=== PATIENT | male | born 1965 | race Caucasian/White ===

== ENCOUNTER → 2018-02-16 | Outpatient (CLI) | payer OTHER | END | disposition home or self-care (01) | LOC: PNCL 14:04 | DX: M79.604 Pain in right leg (principal); M54.5 Low back pain; M19.90 Unspecified osteoarthritis, unspecified site; K58.9 Irritable bowel syndrome, unspecified | CPT/HCPCS: 99214 ==

== ENCOUNTER → 2018-03-02 | Outpatient (CLI) | payer OTHER ==
[~2018-03-02] MED LIST: IOHEXOL 180 MG/ML 10 ML VIAL.; LIDOCAINE 2% PF 2ML VIAL.; methylPREDNISolone ACETATE 40 MG/ML VIAL.; methylPREDNISolone ACETATE 80 MG/ML VIAL.
== END | disposition home or self-care (01) ==
LOC: PNCL 14:06
DX: M51.16 Intervertebral disc disorders with radiculopathy, lumbar region (principal); M48.061 Spinal stenosis, lumbar region without neurogenic claudication; Z79.899 Other long term (current) drug therapy; K58.9 Irritable bowel syndrome, unspecified; M19.90 Unspecified osteoarthritis, unspecified site
CPT/HCPCS: 62323; J1030; J1040; J2001; Q9965

== ENCOUNTER → 2018-05-25 | Outpatient (CLI) | payer OTHER ==
[~2018-05-25] MED LIST changes: +DOXY25TA42 PO; +HYDR-2758 PO; +IBUP-1027 PO; -IOHEXOL 180 MG/ML 10 ML VIAL.; -LIDOCAINE 2% PF 2ML VIAL.; +MULT-245 PO; -methylPREDNISolone ACETATE 40 MG/ML VIAL.; -methylPREDNISolone ACETATE 80 MG/ML VIAL.
--- NOTE | 2018-05-26 05:31 | PAIN ---
DATE OF SERVICE: 05/25/2018 DIAGNOSES: Lumbar radiculopathy with lumbar degenerative disk disease, lumbar spinal stenosis, lumbar herniated disk. HISTORY OF PRESENT ILLNESS: The patient is a 52-year-old male who returns for followup status post lumbar epidural steroid injection x 1 on 03/02/2018. The patient did very well with 90% improvement for about 2 months following the injection. The patient reports the pain is returning now in the low back and into the right lower extremity as it was previously, not to the same extreme, but it is still becoming more noticeable day by day in the right posterior hip, posterior lateral thigh, gluteus, lateral anterior thigh, anterior medial thigh, medial lower leg to the calf, radiating, burning, cramping, shooting pain as well. The patient reports it is an 8 on scale of 10 at all times, average, worst and least. It is an 8 on a scale of 10 today. The patient reports no new motor or sensory deficits. No new bowel or bladder incontinence. He was initially functioning much easier, work with doing work activities as well as household activities, sleeping better at night, now is awakening him from sleep about once at night when he lies on the right side. The patient reports no other changes, but was doing quite well, with the pain is now returning on the right side in a radicular pattern. PHYSICAL EXAMINATION: VITAL SIGNS: The patient's blood pressure 121/78, pulse 81, respirations 16, temperature 98.3 degrees Fahrenheit, height is 5 feet 7 inches, weight is 152 pounds. GENERAL: The patient is awake, alert, oriented, appropriate, very pleasant demeanor. HEENT: Shows normocephalic, atraumatic. Extraocular movements are intact and symmetrical. The patient wears eye glasses. Oral cavity: Mucous membranes moist and pink. Dentition is intact. NECK: Shows anterior throat supple without palpable lymphadenopathy noted. Swallow reflex is symmetrical. CHEST: Shows normal on inspection. Breath sounds are clear to auscultation bilaterally. HEART: Shows S1, S2 clear. No murmurs auscultated. ABDOMEN: Soft, nontender, nondistended. No palpable organomegaly is noted. No rebound or guarding demonstrated. BACK: Shows spine grossly in the midline. Normal appearing thoracic kyphosis and lumbar lordotic curvature. Lumbar paraspinous muscle shows symmetrical on inspection. On palpation shows some moderate tenderness bilaterally, but only diffusely without atrophy, hypertrophy or asymmetry. The patient has good rotational motion of lumbar spine, both laterally as well as extension and flexion without significant difficulty. EXTREMITIES: Lower extremities show deep tendon reflexes at 2+ in the patellar, 1+ tendo calcaneus tendons. Motor exam is strong with approximately 4 on a scale of 5 with right dorsiflexion and extension, 5/5 on the left. Peripheral pulses are 1+ posterior tibia. No peripheral edema is noted. The patient does have mild straight leg raise on the right side about 40 degrees, which has decreased with knee flexion. Left side is negative. Options were discussed with the patient. The patient's old chart was reviewed as is his current medication regimen updated. Current review of systems is updated today as well. We will preauthorize the patient for a second lumbar epidural steroid injection as he has done very well with the first injection with pain returning in the low back, right lower extremity in a radicular fashion L4-L5 dermatomal distribution. The patient will continue with home exercise, stretching and strengthening as he is doing daily and walking daily, also maintaining with anti-inflammatories as he has been taking Advil 3 times a day and we will maintain this as well. We also try Medrol Dosepak. The patient was given instruction as well as side effects to be aware of with the medication. The patient will follow up in approximately 2 weeks. We will plan on second lumbar epidural injection at that time. ARMIN FINN MD DR: ALEIDA/hilda JOB#: [id number] / [id number]
== END | disposition home or self-care (01) ==
LOC: PNCL 11:04
PROVIDERS: ATTEND Anesthesiology
DX: M51.16 Intervertebral disc disorders with radiculopathy, lumbar region (principal); M48.061 Spinal stenosis, lumbar region without neurogenic claudication
CPT/HCPCS: 99212

== ENCOUNTER → 2018-06-08 | Outpatient (CLI) | payer OTHER ==
[~2018-06-08] MED LIST changes: +IOHEXOL 180 MG/ML 10 ML VIAL. ONE; +methylPREDNISolone ACETATE 40 MG/ML VIAL. ONE; +methylPREDNISolone ACETATE 80 MG/ML VIAL. ONE
--- NOTE | 2018-06-08 21:35 | PAIN ---
DATE OF SERVICE: 06/08/2018 PROGRESS NOTE FOR PAIN CLINIC DIAGNOSES: Lumbar radiculopathy with lumbar degenerative disk disease, lumbar spinal stenosis and lumbar herniated disk. HISTORY OF PRESENT ILLNESS: The patient is a 52-year-old male who returns for followup status post lumbar epidural steroid injection x 1. The patient reports about 90% improvement for 2 months and had waited for preauthorization for today's injection and would like to proceed. The patient reports still pain in the low back and into the right lower extremity, mostly in the posterior gluteus, posterolateral thigh, lateral anterior thigh, medial thigh, medial knee on the right side into the medial calf. The patient reports it is a 9 on a scale of 10 at its worst, 9 on average, 3 at its least and is a 9 today. The patient reports it is aching, sharp, burning, cramping, radiating, on and off in intensity becoming more intense with time and more constant with time. The patient reports he was initially increasing his work activities as well as household activities with greater ease and comfort, but the pain returned now and limiting his activities. The patient reports he does sleep well at night and it does not bother him when he is off of his feet, generally with lying down or sitting. PHYSICAL EXAMINATION: VITAL SIGNS: The patient's blood pressure 120/70, pulse 71, respirations 16 and temperature 97.9 degrees Fahrenheit. Height is 5 feet 7 inches and weight is 156 pounds. GENERAL: The patient is awake, alert, oriented, appropriate and very pleasant demeanor. HEENT: Head shows normocephalic and atraumatic. Extraocular movements are intact and symmetrical. Oral cavity: Mucous membranes moist and pink. Dentition is intact. NECK: Shows anterior throat supple without palpable lymphadenopathy noted. Swallow reflex symmetrical. CHEST: Shows normal on inspection. Breath sounds are clear to auscultation bilaterally. HEART: Shows S1 and S2 clear. No murmurs auscultated. ABDOMEN: Soft, nontender and nondistended. No palpable organomegaly is noted. No rebound or guarding demonstrated. BACK: Shows spine grossly in the midline. Normal-appearing thoracic kyphosis and lumbar lordotic curvature. Lumbar paraspinous muscle shows symmetrical on inspection, on palpation shows some moderate tenderness but only diffusely with palpation without radiation. EXTREMITIES: The patient's lower extremities show deep tendon reflexes at 2+ in the patellar, 1+ tendo-calcaneus tendons. Motor exam is strong with 4/5 dorsiflexion and extension on the right and 5/5 on the left. Peripheral pulses are 1+ posterior tibia. No peripheral edema is noted bilaterally. Options were discussed with the patient. The patient's old chart was reviewed as well as his current medication regimen updated. Current review of systems updated today as well. We will proceed with a second in the series of lumbar epidural steroid injection today with fluoroscopic guidance. Risks were again discussed including, but not limited to bleeding, infection, possibility of epidural hematoma and subsequent neurological compromise, dural puncture, headaches, spinal cord and/or nerve damage, side effects of steroid medication and poor results regarding pain control. The patient understands and wished to proceed. The patient will return to the clinic in approximately 2 weeks for followup, was counseled as to return appointment, activity level and side effects to be aware of. DIAGNOSES: Lumbar radiculopathy with lumbar degenerative disk disease, lumbar spinal stenosis and lumbar herniated disk. PROCEDURES: Lumbar epidural steroid injection, translaminar approach at L4-L5 level using C-arm fluoroscopic guidance under sterile prep and drape using local anesthetic. MEDICATION INJECTED: A total of 120 mg Depo-Medrol plus 10 mL of preservative-free normal saline and 2 mL of Isovue for contrast. CONDITION AT DISCHARGE: Stable. The patient tolerated the procedure well, had no complications. ARMIN FINN MD DR: ALEIDA/hilda JOB#: [id number] / [id number]
== END | disposition home or self-care (01) ==
LOC: PNCL 15:04
PROVIDERS: ATTEND Anesthesiology
DX: M51.16 Intervertebral disc disorders with radiculopathy, lumbar region (principal); M48.061 Spinal stenosis, lumbar region without neurogenic claudication
CPT/HCPCS: 62323; J1030; J1040; Q9965

== ENCOUNTER → 2018-08-07 | Outpatient (CLI) | payer OTHER ==
[~2018-08-07] MED LIST changes: -HYDR-2758 PO; +HYDR-2761 PO; -IOHEXOL 180 MG/ML 10 ML VIAL. ONE; -methylPREDNISolone ACETATE 40 MG/ML VIAL. ONE; -methylPREDNISolone ACETATE 80 MG/ML VIAL. ONE
--- NOTE | 2018-08-07 21:25 | PAIN ---
DATE OF SERVICE: 08/07/2018 DIAGNOSES: 1. Lumbar radiculopathy with lumbar degenerative disk disease. 2. Lumbar spinal stenosis. 3. Lumbar herniated disk. HISTORY OF PRESENT ILLNESS: The patient is a 52-year-old male who returns for followup status post lumbar epidural steroid injection on 06/08/2018. The patient did very well with about 75% improvement in the low back and right lower extremity pain for a while, the lower extremity pain with nearly 100% improved. The pain has been returning now in the low back and the right lower extremity. The patient reports this has only come back over the last few days and had about a good 6 weeks of decreased pain in the low back and right lower extremity. Again, getting worse with activity, he has been taking down a lot of [place] decorations, has been on his feet a lot. Also, his right knee is causing some significant pain and he has had some meniscal problems in that as well. His main complaint is low back and right lower extremity pain; described as burning, cramping, throbbing, stabbing, tingling, radiating, sharp and dull across the low back. The patient reports it is 10 on a scale of 10 at its worst, 8 on an average, 6 at its least and is 6 today. The patient reports it has been keeping him from sleeping and he lays on his right side, it awakens him about every 4 hours. The patient reports initially he was doing much better with increased distance walking, working on activities, household activities with much greater ease and comfort, but now is returning as noted. The patient reports that hydrocodone has been helpful, but he has taken the last of those and has been out for several weeks now. PHYSICAL EXAMINATION: VITAL SIGNS: The patient's blood pressure is 110/73, pulse 78, respirations 18, temperature 98.2 degrees Fahrenheit, height is 5 feet 7 inches, weighs 154 pounds. GENERAL: The patient is awake, alert, oriented, appropriate, very pleasant demeanor. HEENT: Head is normocephalic, atraumatic. Extraocular movements intact and symmetrical. Oral cavity: Mucous membranes moist and pink. Dentition is intact. NECK: Shows anterior throat supple without palpable lymphadenopathy noted. Swallow reflex symmetrical. CHEST: Shows normal with inspection. Breath sounds clear to auscultation bilaterally. HEART: Shows S1, S2 clear. No murmurs auscultated. ABDOMEN: Soft, nontender, nondistended. No palpable organomegaly is noted. No rebound or guarding demonstrated. BACK: Shows spine grossly in the midline. Normal-appearing thoracic kyphosis and lumbar lordotic curvature. Lumbar paraspinous muscle shows symmetrical on inspection. On palpation, it shows some moderate tenderness but only diffusely bilaterally in the low lumbar distribution, without asymmetry, without atrophy or hypertrophy. The patient's back shows good rotation of motion both laterally as well as extension and flexion without significant difficulty. EXTREMITIES: Lower extremities show deep tendon reflexes 2+ in the patella and 1+ in tendo calcaneus tendons. Motor exam is approximately 4 on a scale of 5 with right dorsiflexion, extension, quadriceps and hamstring flexion and 5/5 on the left. Peripheral pulses are 1+ posterior tibia. No peripheral edema is noted bilaterally. The patient does have mild straight leg raise on the right at about 45 degrees, which is decreased with knee flexion. Gaenslen's and Eduard's maneuvers are negative bilaterally. Left side is negative. Options were discussed with the patient. The patient's old chart was reviewed as was current medication regimen updated. Current review of systems updated today as well. We will preauthorize the patient for a second lumbar epidural steroid injection with radicular pain again returning in the right L4-L5 dermatomal distribution for L4-L5 epidural steroid injection at that level. The patient will continue with stretching and strengthening exercises as he has been doing, also heat application in the low back and stretching and walking as best as his knee will allow him as tolerated. The patient will return to the clinic in approximately 2 weeks. We will plan on lumbar epidural steroid injection at that time. ARMIN FINN MD DR: ALEIDA/hilda JOB#: [id number] / [id number]
== END | disposition home or self-care (01) ==
LOC: PNCL 15:02
PROVIDERS: ATTEND Anesthesiology
DX: M51.16 Intervertebral disc disorders with radiculopathy, lumbar region (principal); M48.061 Spinal stenosis, lumbar region without neurogenic claudication; M51.26 Other intervertebral disc displacement, lumbar region
CPT/HCPCS: G0463

== ENCOUNTER → 2018-08-17 | Outpatient (CLI) | payer OTHER ==
[~2018-08-17] MED LIST changes: +IOHEXOL 180 MG/ML 10 ML VIAL. ONE; +methylPREDNISolone ACETATE 40 MG/ML VIAL. ONE; +methylPREDNISolone ACETATE 80 MG/ML VIAL. ONE
--- NOTE | 2018-08-17 19:31 | PAIN ---
DATE OF SERVICE: 08/17/2018 DIAGNOSES: 1. Lumbar radiculopathy with lumbar degenerative disk disease, lumbar spinal stenosis ;and lumbar herniated disk. 2. Right knee joint pain with primary osteoarthritis right knee joint. HISTORY OF PRESENT ILLNESS: The patient is a 52-year-old male who returns for followup status preauthorization for lumbar epidural steroid injection #3. The patient did very well after the last injection, about 50% improvement overall, now with pain returning in the right lower extremity, low back, posterior gluteus, posterior lateral thigh, lateral anterior thigh, medial thigh, medial lower leg, also significant pain in the right knee with walking, standing, changing positions, climbing stairs or climbing up on a step even in the right knee itself. The patient reports the knee is much better without weightbearing and with lying down, but his back still causes some pain at night, occasionally awakens him from sleep, but not most nights. The patient reports no new motor or sensory deficits, no new bowel or bladder incontinence. The patient reports pain in the back is 9 on a scale of 10 at its worst, 8 on an average, 7 at its least and is 7 today. The patient reports it is aching, cramping, radiating dull, sharp pain, alternating with aching and radiating into the right knee as well. PHYSICAL EXAMINATION: VITAL SIGNS: The patient's blood pressure 112/60, pulse 67, respirations 18, temperature 98.6 degrees Fahrenheit. Height is 5 feet 7 inches, weight 158 pounds. GENERAL: The patient is awake, alert, oriented, appropriate, very pleasant demeanor. HEENT: Head shows normocephalic, atraumatic. Extraocular muscles are intact and symmetrical. Oral cavity, mucous membranes are moist and pink. Dentition is intact. NECK: Shows anterior throat supple without palpable lymphadenopathy noted. Swallow reflex symmetrical. CHEST: Shows normal on inspection. Breath sounds clear to auscultation bilaterally. HEART: Shows S1, S2 clear. No murmurs auscultated. ABDOMEN: Soft, nontender, nondistended. No palpable organomegaly is noted. No rebound or guarding demonstrated. BACK: Shows spine grossly in the midline. Normal-appearing thoracic kyphosis and lumbar lordotic curvature. Lumbar paraspinous muscle shows symmetrical on inspection; with palpation, shows some moderate tenderness, but only diffusely in the low lumbar distribution without radiation. EXTREMITIES: The patient's lower extremities show deep tendon reflexes at 2+ in the patellar, 1+ in the tendo calcaneus tendons are equal. Motor exam is strong with 4/5 on the right with dorsiflexion and extension, 5/5 on the left. Peripheral pulses are 1+ posterior tibial. No peripheral edema is noted bilaterally. The patient's right knee shows some fairly significant tenderness with palpation in the medial component and the medial collateral ligament, but good range of motion with both active and passive range without ratcheting or crepitus. Options were discussed with the patient. The patient's old chart was reviewed as was his current medication regimen updated. Current review of systems updated today as well. We will proceed with a third lumbar epidural steroid injection today with fluoroscopic guidance. Risks were again discussed including, but not limited to bleeding, infection, possibility of epidural hematoma, subsequent neurologic compromise, dural puncture, headaches, spinal cord and/or nerve damage, side effects of steroid medication and poor results regarding pain control. The patient understands and wished to proceed. The patient will return to clinic in approximately 2 weeks for followup, was counseled as to return appointment, activity level and side effects to be aware of. We also will preauthorize the patient for a right intraarticular knee joint injection as he had significant pain in the right knee with MRI of the right knee showing subchondral cyst formation, full thickness chondral fissuring of the medial most aspect of the patella and myocardial loss in the trochlear groove and full thickness chondral irregularity involving the articular surface of the distal lateral femoral condyle. DIAGNOSIS: Lumbar radiculopathy with lumbar degenerative disk disease, lumbar spinal stenosis and lumbar herniated disk. PROCEDURE: Lumbar epidural steroid injection, translaminar approach at the L4-L5 level using C-arm fluoroscopic guidance under sterile prep and drape using local anesthetic. MEDICATION INJECTED: A total of 120 mg Depo-Medrol plus 10 mL of preservative-free normal saline and 2 mL of Isovue for contrast. CONDITION AT DISCHARGE: Stable. The patient tolerated the procedure well, had no complications. ARMIN FINN MD DR: ALEIDA/hilda JOB#: [id number] / [id number]
== END | disposition home or self-care (01) ==
LOC: PNCL 14:03
PROVIDERS: ATTEND Anesthesiology
DX: M51.16 Intervertebral disc disorders with radiculopathy, lumbar region (principal); M48.061 Spinal stenosis, lumbar region without neurogenic claudication; M17.11 Unilateral primary osteoarthritis, right knee
CPT/HCPCS: 62323; J1030; J1040; Q9965

== ENCOUNTER → 2018-10-10 | Outpatient (CLI) | payer OTHER ==
[~2018-10-10] MED LIST changes: +BUPIVACAINE MPF 0.25% 10 ML VIAL. ONE; -methylPREDNISolone ACETATE 40 MG/ML VIAL. ONE
--- NOTE | 2018-10-11 01:15 | PAIN ---
DATE OF SERVICE: 10/10/2018 PROGRESS NOTE FOR PAIN CLINIC DIAGNOSES: 1. Lumbar radiculopathy with lumbar degenerative disk disease with lumbar spinal stenosis and lumbar herniated disk. 2. Right knee joint pain with osteoarthritis, primary, right knee. 3. Right elbow bursitis. HISTORY OF PRESENT ILLNESS: The patient is a 52-year-old male who returns for followup status post lumbar epidural steroid injection with very good results with near 100% improvement with his back. He is having pain in his right knee as well as his right elbow for about the past 2 weeks for which he has been taking Motrin and Advil [id number]. Also, he has tried Naprosyn and putting Voltaren gel on his right elbow without significant improvement. It is much worse with working and using his upper extremities with any repetitive motions or any activity, twisting, lifting motion. 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 The patient reports not much relief with the nonsteroidals as well as stretching exercises. He is putting ice applications on his elbow as well, which feels good for a while, but is having significant pain with use of it, also having significant pain with standing on his right knee, especially with stepping on stairs or steps at work, especially with any pressure on the right knee exclusively. The patient reports no new motor or sensory deficits, no new bowel or bladder incontinence or other complaints. The patient rates his pain as a 10 on a scale of 10 on average, worst and at its least and is a 10 today in the right elbow and is 7 on the right knee. The patient reports it is sharp, burning, constant, becoming severe, more unbearable, again with activity with the right arm and right knee. PHYSICAL EXAMINATION: VITAL SIGNS: The patient's blood pressure is 100/69, pulse 70, respirations 18, temperature 97.9 degrees Fahrenheit. Height is 5 feet 7 inches, weight is 159 pounds. GENERAL: The patient is awake, alert, oriented, appropriate, very pleasant demeanor. HEENT: Head shows normocephalic, atraumatic. Extraocular movements are intact and symmetrical. Oral cavity: Mucous membranes moist and pink. Dentition is intact. NECK: Shows anterior throat supple without palpable lymphadenopathy noted. Swallow reflex symmetrical. CHEST: Shows normal with inspection. Breath sounds clear to auscultation bilaterally. HEART: Shows S1, S2 clear. No murmurs auscultated. ABDOMEN: Soft, nontender, nondistended. No palpable organomegaly is noted. No rebound or guarding demonstrated. BACK: Shows spine grossly in the midline. Normal appearing thoracic kyphosis and lumbar lordotic curvature. Lumbar paraspinous muscle shows symmetrical with very minimal tenderness on palpation with low lumbar distribution of the paraspinous musculature. The patient has good rotational motion of lumbar spine both laterally as well as extension and flexion without significant difficulty or pain reported. EXTREMITIES: The patient's extremities show upper extremity deep tendon reflexes 2+ in the biceps, triceps tendons. Pararescue Manager strength is 5/5 mobile practice lead strength bilaterally. The patient's right elbow shows significant tenderness over the lateral condyle with even moderate pressure with significant pain reported, some mild pain in the medial condyle and over the olecranon process medially as well as anteriorly, mostly on the lateral epicondyle on the right side with significant pain with palpation. This is worse with rotation, supination and pronation of the hand, even without weightbearing. Left side is nontender. The patient's lower extremities show deep tendon reflexes at 2+ in the patellar, 1+ tendo calcaneus tendons. Motor exam is strong with 4/5 on the right, 5/5 on the left. The patient's right knee shows significant tenderness with weightbearing putting all his weight on the knee, but shows good range of motion without crepitus or ratcheting. Options were discussed with the patient. The patient's old chart was reviewed as his current medication regimen updated. Current review of systems updated today as well. We will proceed with right intraarticular knee joint injection as he has not been preauthorized for his right elbow bursa injection and would like to get the knee taken care of today. Options were discussed, risks including, but not limited to, bleeding, infection, possibility of intravascular injection sequelae, spread of local anesthetic and numbness, side effects of steroid medication and poor results regarding pain control. The patient understands and wished to proceed. The patient to return to clinic in approximately 1 week. We will plan on right elbow epicondylar intraarticular injection at that time once approval has been obtained with his insurance provider. The patient will continue with the nonsteroidals as well as doing some stretching exercises with the right arm and mobility exercises, also trying to get wearing a band around the upper forearm as well and maintain the Voltaren gel applications and ice applications. DIAGNOSIS: Primary osteoarthritis, right knee joint. PROCEDURE: Right intraarticular knee joint injection using C-arm fluoroscopic guidance under sterile prep and drape using local anesthetic. MEDICATION INJECTED: A total of 80 mg of Depo-Medrol plus 3 mL of 0.25% bupivacaine and 1.5 mL Isovue for contrast. CONDITION AT DISCHARGE: Stable. The patient tolerated the procedure well, had no complications. ARMIN FINN MD DR: ALEIDA/hilda JOB#: [id number] / [id number]
== END | disposition home or self-care (01) ==
LOC: PNCL 07:57
PROVIDERS: ATTEND Anesthesiology
DX: M17.11 Unilateral primary osteoarthritis, right knee (principal); M70.31 Other bursitis of elbow, right elbow; M51.16 Intervertebral disc disorders with radiculopathy, lumbar region; M48.061 Spinal stenosis, lumbar region without neurogenic claudication
CPT/HCPCS: 20610; 77002; J1040; J3490; Q9965

== ENCOUNTER → 2018-10-24 | Outpatient (CLI) | payer OTHER ==
[~2018-10-24] MED LIST changes: -IOHEXOL 180 MG/ML 10 ML VIAL. ONE; +methylPREDNISolone ACETATE 40 MG/ML VIAL. ONE; -methylPREDNISolone ACETATE 80 MG/ML VIAL. ONE
--- NOTE | 2018-10-25 04:10 | PN ---
DATE: 10/24/2018 DIAGNOSES: 1. Right elbow olecranon bursitis. 2. Lumbar radiculopathy with lumbar degenerative disk disease with lumbar spinal stenosis and lumbar herniated disk. 3. Right knee joint pain with primary osteoarthritis, right knee joint. HISTORY OF PRESENT ILLNESS: The patient is a 52-year-old male, who returns for followup status post right intraarticular knee joint injection. The patient reports significant improvement about 85% overall with some minor pain returning now to about 80%, but doing very well. The patient reports he has been walking with greater ease and comfort, also with good control of his low back pain, which is relieved significantly. Also, the patient's main complaint is right elbow, which continues to have some significant pain consistent with olecranon bursitis of the right elbow. The patient reports the pain is constant, becoming more sharp, worse with use of the arm repetitive motions, lifting items or twisting the arm and hand on the right side. The patient reports pain is a 9 on a scale of 10 at its average, worst, and at least is constantly a 9 awakening him from sleep at night and affecting his ability to work as he does use his hands for repetitive motions at work. The patient reports no new motor or sensory deficits or other complaints. PHYSICAL EXAMINATION: VITAL SIGNS: The patient's blood pressure 102/63, pulse 71, respirations are 18, temperature is 98.3 degrees Fahrenheit, height is 5 feet 6 inches, weight 154 pounds. GENERAL: The patient is awake, alert, oriented, appropriate, very pleasant demeanor. HEENT: Head is normocephalic, atraumatic. Extraocular movements are intact and symmetrical. Oral cavity: Mucous membranes moist and pink. Dentition is intact. NECK: Shows anterior throat supple without palpable lymphadenopathy noted. Swallow reflex symmetrical. CHEST: Shows normal with inspection. Breath sounds are clear to auscultation bilaterally. HEART: Shows S1, S2 clear. No murmurs auscultated. ABDOMEN: Soft, nontender, nondistended. No palpable organomegaly is noted. No rebound or guarding demonstrated. BACK: Shows spine grossly in the midline. Normal appearing thoracic kyphosis and lumbar lordotic curvature. Lumbar paraspinous muscle shows symmetrical on inspection. On palpation shows some moderate tenderness only diffusely without radiation. The patient has good rotational motion of lumbar spine, both laterally as well as extension and flexion without difficulty. The patient's lower extremities show deep tendon reflexes at 2+ in the patellar, 1+ tendo calcaneus tendons. Motor exam is strong with 5/5 dorsiflexion and extension. The patient's right knee shows good range of motion without significant pain. No crepitus, no ratcheting of the joint with passive motion as well. The patient's upper extremities show deep tendon reflexes 2+ in the biceps and triceps tendons. 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 Bicep and tricep flexion about 4/5 on the right, can be limited by pain with both flexion and extension of the right elbow with pain in the elbow itself. The patient's right elbow shows significant tenderness over the lateral aspect in the olecranon process as well of the ulna and very tender joints on the lateral and also the medial aspect. Options were discussed with the patient. The patient's old chart was reviewed as his current medication regimen updated. Current review of systems updated today as well. We will proceed with a right olecranon bursa injection of the right elbow. Risks were again discussed including, but not limited to bleeding, infection, possibility of intravascular injection sequelae, spread of local anesthetic and numbness, side effects of steroid medication and poor results regarding pain control. The patient understands and wished to proceed. The patient will return to clinic in approximately 2 weeks for followup, was counseled on return appointment, activity level and side effects to be aware of. DIAGNOSIS: Right olecranon bursitis of the right elbow. PROCEDURE: Right olecranon bursa injection using sterile prep and drape under local anesthetic. MEDICATION INJECTED: A total of 40 mg of Depo-Medrol plus 3 mL of 0.25% bupivacaine after negative aspiration at the injection site. CONDITION AT DISCHARGE: Stable. The patient tolerated the procedure well and had no complications. ARMIN FINN MD DR: ALEIDA/hilda JOB#: [id number] / [id number]
== END | disposition home or self-care (01) ==
LOC: PNCL 14:38
PROVIDERS: ATTEND Anesthesiology
DX: M70.21 Olecranon bursitis, right elbow (principal); M51.16 Intervertebral disc disorders with radiculopathy, lumbar region; M48.061 Spinal stenosis, lumbar region without neurogenic claudication; M17.11 Unilateral primary osteoarthritis, right knee
CPT/HCPCS: 20605; J1030; J3490

== ENCOUNTER → 2018-12-07 | Outpatient (CLI) | payer OTHER ==
[~2018-12-07] MED LIST changes: -BUPIVACAINE MPF 0.25% 10 ML VIAL. ONE; -methylPREDNISolone ACETATE 40 MG/ML VIAL. ONE
--- NOTE | 2018-12-08 03:53 | PAIN ---
DATE OF SERVICE: 12/07/2018 DIAGNOSES: 1. Lumbar radiculopathy with lumbar degenerative disk disease and lumbar spinal stenosis and lumbar herniated disk. 2. Right knee joint pain with primary osteoarthritis, right knee joint. HISTORY OF PRESENT ILLNESS: The patient is a 53-year-old male who returns for followup status post both lumbar epidural steroid injections as well as right knee joint injection and most recently right elbow olecranon bursa injection. The patient reports he did very well with his elbow, his low back doing much better. The patient reports about 100% with each of these improvement, still currently improved. The patient reports his main complaint is right knee; however, he has had significant pain in the right knee, has had orthopedic followup. He has been told he could use knee replacement, but would warrant to wait until he was older, this was just a few years ago. The patient reports that his main complaint today that when he is walking, standing, changing positions at work especially, he notices it is much worse. The patient has been taking hydrocodone twice a day, which is decreasing the pain, but not controlling completely and on the weekend when he is not working, he has been using ibuprofen with similar results without the narcotics. The patient reports it is worse with standing, walking, changing positions, climbing stairs, getting up from a seated position, especially in the morning when he gets up first thing is very slow deliberate movements with his right knee. The patient reports no loss of motor function, but significant pain and fatigability with the right leg and knee. The patient reports no new motor or sensory deficits, no new changes. PHYSICAL EXAMINATION: VITAL SIGNS: The patient's blood pressure is 110/61, pulse 71, respirations 16, temperature 98.1 degrees Fahrenheit. Height is 5 feet 6 inches, weight is 151 pounds. GENERAL: The patient is awake, alert, oriented, appropriate. HEENT: Head is normocephalic, atraumatic. Extraocular movements are intact and symmetrical. Oral cavity: Mucous membranes moist and pink. Dentition is intact. NECK: Shows anterior throat supple without palpable lymphadenopathy noted. Swallow reflex symmetrical. CHEST: Shows normal on inspection. Breath sounds are clear to auscultation bilaterally. HEART: Shows S1, S2 clear. No murmurs auscultated. ABDOMEN: Soft, nontender, nondistended. No palpable organomegaly is noted. No rebound or guarding demonstrated. BACK: Shows spine grossly in the midline, normal-appearing cervical lordotic curvature, thoracic kyphotic curvature and lumbar lordotic curvature. Lumbar paraspinous muscle shows symmetrical on inspection, mild tenderness with deep palpation in lower lumbar distribution with forward rotation of motion both laterally as well as extension and flexion without difficulty. EXTREMITIES: The patient's lower extremities show deep tendon reflexes 2+ in the patellar, 1+ tendo-calcaneus tendons. Motor exam is strong with 5/5 dorsiflexion and extension. The patient's right knee shows some moderate tenderness with palpation in the posterior aspect of the popliteal fossa as well as the medial collateral ligaments and moderately tender, but not the lateral collateral ligament. The patient has good hinge motion without ratcheting, without significant crepitus or difficulty in range with good flexion past 100 degrees. Peripheral pulses are 1+ posterior tibial. No peripheral edema is noted. Options were discussed with the patient. The patient's old chart was reviewed as was his current medication regimen updated. Current review of systems updated today as well. We will preauthorize the patient for right intraarticular knee joint injection with Synvisc or Monovisc as deemed available. The patient would like to pursue this. He has significant osteoarthritis of the right knee and again with Orthopedic recommending knee replacement in the future, he would like to temporize this and perhaps put off total knee replacement surgery. We will make the arrangements to preauthorize the patient for an intra-articular Synvisc/Monovisc injection with fluoroscopic guidance. The patient will return to the clinic in approximately 1 week. We will plan on the right intraarticular knee joint injection with Synvisc or Monovisc at that time. ARMIN FINN MD DR: ALEIDA/hilda JOB#: [id number] / [id number]
== END | disposition home or self-care (01) ==
LOC: PNCL 15:00
PROVIDERS: ATTEND Anesthesiology
DX: M51.16 Intervertebral disc disorders with radiculopathy, lumbar region (principal); M48.061 Spinal stenosis, lumbar region without neurogenic claudication; M17.11 Unilateral primary osteoarthritis, right knee
CPT/HCPCS: G0463